=== PATIENT | female | born 2000 | race Caucasian/White ===

== ENCOUNTER 2023-11-19 14:27 | Emergency (ER) | payer MEDICAID | END 2023-11-19 15:42 | disposition left against medical advice (07) | LOC: ED 14:27 | DX: Z53.21 Procedure and treatment not carried out due to patient leaving prior to being seen by health care provider (principal) | CPT/HCPCS: 99281; G0463 ==

== ENCOUNTER 2024-04-08 17:31 | Emergency (ER) | payer MEDICAID, OTHER ==
[2024-04-08 18:32] VITALS: TEMP 97.7; O2SAT 99
--- NOTE | 2024-04-08 19:11 | ERPHSYRPT ---
- History of Present Illness Time Seen by Provider: 04/08/24 18:30 Source: patient Exam Limitations: no limitations Patient Subjective Stated Complaint: C/O left hand pain following and injury at home today. Patient states that she was vacuming her window ledge with the wi ndow raised when it fell on her hand. Triage Nursing Assessment: Patient ambulated back to ER without difficulties. She is alert and oriented. She is gaurding her left hand. Left hand is slightly swollen with no bruising noted. No skin alterations present. Normal sensation present. Physician History: 24-year-old female presents to our ED for evaluation of pain to her left hand. 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 Injury occurred just prior to arrival. Pain described as an ache that is localized. No radiation. Pain worse with movement and palpation pain improved with rest. No other complaints. No other injuries. Patient states he is otherwise healthy. She voices no other complaints at this time. Patient declined pain medication Portions of this note were created with voice recognition technology. There may be grammatical, spelling, punctuation or sound alike errors Occurred: just prior to arrival Method of Injury: direct blow Quality: constant Severity of Pain-Max: moderate Severity of Pain-Current: mild Extremities Pain Location: hand: left Modifying Factors: Improves With: movement Associated Symptoms: none Allergies/Adverse Reactions: influenza virus vaccine qs [id number] (36 mos, up) [From Fluarix Quad] Allergy (Verified 04/08/24 18:20) influenza virus vaccine ts [id number] (36 mos up) [From Fluarix [id number] (PF)] Allergy (Verified 04/08/24 18:20) Home Medications: Cyclobenzaprine HCl 10 mg [Cyclobenzaprine 10 MG] 10 mg PO QID 08/19/23 [History] Dicyclomine HCl 10 mg PO TID 08/19/23 [History] Nabumetone 500 mg PO BID 08/19/23 [History] Sertraline HCl [Zoloft] 100 mg PO DAILY 08/19/23 [History] Sumatriptan Succinate 25 mg [Imitrex 25 MG] 25 mg PO UD PRN 08/19/23 [History] Topiramate 25 mg [Topamax 25 MG] 25 mg PO DAILY 08/19/23 [History] hydrOXYzine HCL [Hydroxyzine HCl] 10 mg PO TID 08/19/23 [History] Hx Tetanus, Diphtheria Vaccination/Date Given: Yes Immunizations Up to Date: Yes Travel Risk - International Travel Have you traveled outside of the country in past 3 weeks: No - Emerging Infectious Disease Are you exhibiting symptoms associated with any current EIDs: No - Review of Systems Constitutional: No Symptoms, No Fever, No Chills Eyes: No Symptoms Ears, Nose, & Throat: No Symptoms Respiratory: No Symptoms, No Cough, No Dyspnea Cardiac: No Symptoms, No Chest Pain, No Edema, No Syncope Abdominal/Gastrointestinal: No Symptoms, No Abdominal Pain, No Nausea, No Vomiting, No Diarrhea Genitourinary Symptoms: No Symptoms, No Dysuria Musculoskeletal: No Symptoms, No Back Pain, No Neck Pain Skin: No Symptoms, No Rash Neurological: No Symptoms, No Dizziness, No Focal Weakness, No Sensory Changes Psychological: No Symptoms Endocrine: No Symptoms Hematologic/Lymphatic: No Symptoms Immunological/Allergic: No Symptoms All Other Systems: Reviewed and Negative - Past Medical History Pertinent Past Medical History: Yes Neurological History: Migraines GI Medical History: Gallbladder Disease, Irritable Bowel Psycho-Social History: Anxiety, Depression - Past Surgical History Past Surgical History: Yes Gastrointestinal: Appendectomy, Cholecystectomy Female Surgical History: Tubal Ligation - Female History Hx Now: No - Social History Smoking Status: Former smoker Exposure to second hand smoke: No Drug Use: none Patient Lives Alone: No - Nursing Vital Signs Nursing Vital Signs: Initial Vital Signs Temperature 97.7 F 04/08/24 18:20 Pulse Rate 81 04/08/24 18:20 Respiratory Rate 19 04/08/24 18:20 Blood Pressure 109/66 04/08/24 18:20 O2 Sat by Pulse Oximetry 99 04/08/24 18:20 Pain Scale Pain Intensity 6 - Physical Exam General Appearance: no apparent distress, alert Eyes, Ears, Nose, Throat Exam: moist mucous membranes Neck Exam: non-tender, supple Cardiovascular/Respiratory Exam: chest non-tender, regular rate/rhythm, no respiratory distress Abdominal Exam: No guarding Back Exam: normal inspection, No vertebral tenderness Shoulder Exam: normal inspection, non-tender, no evidence of injury, normal ROM Elbow/Forearm Exam: normal inspection, non-tender, no evidence of injury, normal ROM Wrist Exam: normal inspection, non-tender, no evidence of injury, normal ROM Hand Exam: bone tenderness (Tenderness to palpation along the dorsum aspect particularly at the left second MCP. Overlying soft tissue intact. Involved extremities neurovascular tact distally compartments are soft cap refill less than 2 seconds.) Neuro/Tendon Exam: normal sensation, normal motor functions Mental Status Exam: alert, oriented x 3, cooperative Skin Exam: normal color, warm, dry SpO2 Interpretation: normal SpO2: 99 O2 Delivery: Room Air - Course Nursing assessment & vital signs reviewed: Yes - Radiology Exams Hand X-ray Interpretation: Interpreted by me (No fracture or dislocation) Ordered Tests: Active Orders 24 hr Category Date Time Status HAND (MINIMUM 3 VIEWS) Stat Exams 04/08/24 18:19 Taken - Progress Progress: improved Progress Note: 24-year-old female presents to our ED for evaluation of pain to her left hand. Patient injured her hand on a window while doing housework. X-ray negative for fracture dislocation. On exam patient is neurovascular tact distally. Compartments are soft cap refill less than 2 seconds. Patient placed in a hand splint for comfort. Patient will see her primary care doctor within 48 hours for evaluation. Patient declined pain medication. She voices no other complaints or concerns at this time. Portions of this note were created with voice recognition technology. There may be grammatical, spelling, punctuation or sound alike errors Complexity problem addressed is moderate acute complicated. No critical care time. Complex of data reviewed and analyzed is moderate. Test ordered test reviewed results analyzed and correlated clinically with history and physical examination. Dr. Heard independently reviewed the x-ray of her involved left hand. Of complication and or risk of morbidity/mortality patient management is low Vital stable. Time spent to discharge patient is approximately 15 minutes. Plan of care established for shared decision making. No social determinants of health present impede follow-up. Portions of this note were created with voice recognition technology. There may be grammatical, spelling, punctuation or sound alike errors 04/08/24 19:16 Counseled pt/family regarding: diagnosis, need for follow-up, rad results - Departure Departure Disposition: Home Clinical Impression: Hand contusion Condition: Stable Critical Care Time: No Referrals: DOCTOR,NO FAMILY [Primary Care Provider] - Follow up/PCP as directed WESTLEY MANLEY MD [ACTIVE STAFF] - Follow up/PCP as directed Additional Instructions: Discharge/Care Plan OLEKSANDR JACKSON was seen on 04/08/24 in the Emergency Room. The patient was counseled regarding Diagnosis,Lab results, Imaging studies, need for follow up and when to return to the Emergency Room. Prescriptions given: Discharge Note I have spoken with the patient and/or caregivers. I have explained the patient's condition, diagnosis and treatment plan based on the information available to me at this time. I have answered the patient's and/or caregiver's questions and addressed any concerns. The patient and/or caregivers have as good understanding of the patient's diagnosis, condition and treatment plan as can be expected at this point. The vital signs have been stable. The patient's condition is stable and appropriate for discharge from the emergency department. The patient will pursue further outpatient evaluation with the primary care physician or other designated or consulting physician as outlined in the discharge instructions. The patient and/or caregivers are agreeable to this plan of care and follow-up instructions have been explained in detail. The patient and/or caregivers have received these instruction. The patient/and or caregivers are aware that any significant change in condition or worsening of symptoms should prompt an immediate return to this or the closest emergency department or call 911. Outpatient Orders: Ortho Referral Time Frame: 1 Day, Facility: [facility], Location: [facility]
[2024-04-08 19:12] VITALS: BP 116/71; PULSE 76; RESP 16
--- NOTE | 2024-04-09 09:01 | XRAY ---
Indication: Pain following injury. Comparison: None 3 view left hand obtained. No bony, articular, or soft tissue abnormalities.
== END 2024-04-08 19:14 | disposition home or self-care (01) ==
LOC: ED 17:31
DX: S60.222A Contusion of left hand, initial encounter (principal); W20.8XXA Other cause of strike by thrown, projected or falling object, initial encounter; Y93.E3 Activity, vacuuming; Z79.899 Other long term (current) drug therapy
CPT/HCPCS: 73130; 99283; A4570

== ENCOUNTER 2024-05-11 18:18 | Emergency (ER) | payer OTHER ==
[2024-05-11 18:34] VITALS: BP 128/68; PULSE 80; RESP 18; TEMP 97.2; O2SAT 98
--- NOTE | 2024-05-11 18:34 | ERPHSYRPT ---
- History of Present Illness Time Seen by Provider: 05/11/24 18:31 Source: patient Exam Limitations: no limitations Physician History: Patient is 24-year-old female came to the emergency room with complaining of right wrist pain which started hurting since yesterday patient denies any fall or injury. Patient denies any other complaint. Occurred: yesterday Method of Injury: unknown Quality: constant Extremities Pain Location: wrist: right Modifying Factors: Improves With: nothing Associated Symptoms: none Body Map: 1 - pain Allergies/Adverse Reactions: influenza virus vaccine qs [id number] (36 mos, up) [From Fluarix Quad] Allergy (Verified 05/11/24 18:26) influenza virus vaccine ts [id number] (36 mos up) [From Fluarix [id number] (PF)] Allergy (Verified 05/11/24 18:26) Home Medications: Cyclobenzaprine HCl 10 mg [Cyclobenzaprine 10 MG] 10 mg PO QID 08/19/23 [History] Dicyclomine HCl 10 mg PO TID 08/19/23 [History] Nabumetone 500 mg PO BID 08/19/23 [History] Sertraline HCl [Zoloft] 100 mg PO DAILY 08/19/23 [History] Sumatriptan Succinate 25 mg [Imitrex 25 MG] 25 mg PO UD PRN 08/19/23 [History] Topiramate 25 mg [Topamax 25 MG] 25 mg PO DAILY 08/19/23 [History] hydrOXYzine HCL [Hydroxyzine HCl] 10 mg PO TID 08/19/23 [History] Hx Tetanus, Diphtheria Vaccination/Date Given: Yes Travel Risk - Emerging Infectious Disease Are you exhibiting symptoms associated with any current EIDs: No - Review of Systems Constitutional: No Fever, No Chills Eyes: No Symptoms Ears, Nose, & Throat: No Symptoms Respiratory: No Cough, No Dyspnea Cardiac: No Chest Pain, No Edema, No Syncope Abdominal/Gastrointestinal: No Abdominal Pain, No Nausea, No Vomiting, No Diarrhea Genitourinary Symptoms: No Dysuria Musculoskeletal: Joint Pain (right wrist), No Back Pain, No Neck Pain Skin: No Rash Neurological: No Dizziness, No Focal Weakness, No Sensory Changes Psychological: No Symptoms Endocrine: No Symptoms Hematologic/Lymphatic: No Symptoms Immunological/Allergic: No Symptoms All Other Systems: Reviewed and Negative - Past Medical History Pertinent Past Medical History: Yes Neurological History: Migraines GI Medical History: Gallbladder Disease, Irritable Bowel Psycho-Social History: Anxiety, Depression Other Medical History: back issues - Past Surgical History Past Surgical History: Yes Gastrointestinal: Appendectomy, Cholecystectomy Female Surgical History: Tubal Ligation - Female History Hx Now: No - Social History Smoking Status: Former smoker Exposure to second hand smoke: No Drug Use: none Patient Lives Alone: No - Social Determinants of Health Will the patient participate in the screening: Yes Do you worry about a steady place to live?: No In the past 12 months,have you had to go without utilities?: No Transportation Issues: No Has anyone in your support network made you feel unsafe?: No Have you or anyone in your house had to go without enough: No - Nursing Vital Signs Nursing Vital Signs: Initial Vital Signs Temperature 97.2 F 05/11/24 18:33 Pulse Rate 80 05/11/24 18:33 Respiratory Rate 18 05/11/24 18:33 Blood Pressure 128/68 05/11/24 18:33 O2 Sat by Pulse Oximetry 98 05/11/24 18:33 Pain Scale Pain Intensity 6 - Physical Exam General Appearance: alert Eyes, Ears, Nose, Throat Exam: moist mucous membranes Neck Exam: non-tender, supple Cardiovascular/Respiratory Exam: chest non-tender, normal breath sounds, regular rate/rhythm, no respiratory distress Abdominal Exam: non-tender, No guarding Back Exam: normal inspection, No vertebral tenderness Shoulder Exam: normal inspection, non-tender, no evidence of injury Elbow/Forearm Exam: normal inspection, non-tender, no evidence of injury, normal ROM Wrist Exam: normal inspection, normal ROM, pain, soft tissue tenderness, No deformity Hand Exam: normal inspection, non-tender, no evidence of injury, normal ROM Neuro/Tendon Exam: normal sensation, normal motor functions Mental Status Exam: alert, oriented x 3, cooperative Skin Exam: normal color, warm, dry - Course Nursing assessment & vital signs reviewed: Yes - Radiology Exams Wrist X-ray Interpretation: Interpreted by me, Reviewed by me, Negative, No Fracture Ordered Tests: Active Orders 24 hr Category Date Time Status WRIST (MIN 3 VIEWS) Stat Exams 05/11/24 18:37 Taken - Progress Progress: unchanged, pain not gone completely Counseled pt/family regarding: diagnosis, need for follow-up, rad results Medical Desision Making - Diagnostic Testing Diagnostic test were ordered, analyzed, and reviewed by me: Yes Radiological Interpretation: Interpreted by me, Reviewed by me - Risk of complications Minimal Risk: Minimal risk of morbidity - Departure Departure Disposition: Home Clinical Impression: Right wrist pain Condition: Stable Critical Care Time: No Referrals: ROBSON GRAMAJO, IQRA [Primary Care Provider] - [facility] M-F [id number] Instructions: Wrist Sprain ED Additional Instructions: Discharge/Care Plan OLEKSANDR JACKSON was seen on 05/11/24 in the Emergency Room. The patient was counseled regarding Diagnosis,Lab results, Imaging studies, need for follow up and when to return to the Emergency Room. Prescriptions given: Discharge Note I have spoken with the patient and/or caregivers. I have explained the patient's condition, diagnosis and treatment plan based on the information available to me at this time. I have answered the patient's and/or caregiver's questions and addressed any concerns. The patient and/or caregivers have as good understanding of the patient's diagnosis, condition and treatment plan as can be expected at this point. The vital signs have been stable. The patient's condition is stable and appropriate for discharge from the emergency department. The patient will pursue further outpatient evaluation with the primary care physician or other designated or consulting physician as outlined in the discharge instructions. The patient and/or caregivers are agreeable to this plan of care and follow-up instructions have been explained in detail. The patient and/or caregivers have received these instruction. The patient/and or caregivers are aware that any significant change in condition or worsening of symptoms should prompt an immediate return to this or the closest emergency department or call 911. OLEKSANDR JACKSON was seen on 05/11/24 n the Emergency Room. At that time you were treated for an emergent condition, during your visit Laboratory, Radiology and/or other procedures may have been ordered. It is very important that you follow-up with your Primary Care Physician ROBSON GRAMAJO within the next 24-48 hours to review your Emergency Room visit and the final results of testing that was ordered. Some test results such as Urine Cultures, Blood Cultures, and other cultures if ordered will not be finalized for 24-48 hours. If you do not have a Primary Care Provider please call the medical records department at [phone] ext [phone] to obtain a copy of your results or you may sign into our patient portal to obtain these results by visiting us @ [email or web address] and completing the following steps: 1. Click on the Patient Portal link 2. Click the Patient Self Enrollment Link to complete the enrollment form and entering your 3. Once the enrollment form is completed you will receive an email with a temporary ID and password at the email address you provided. 4. Next choose a user name and password. Your user name must be at least 4 characters long and your password must be at least 4 characters long. 5. Choose a security question from the list and provide your answer to the question. If you already have signed into the Health Portal you may access your Health Care Information 11/06 by the following steps: 1. Login to our website @ [email or web address] 2. Enter your original user name and password. FAQS The [facility] Health Portal is an online tool that contains your Lab Results, Radiology Reports, Visit History, Discharge Instructions and Health Summary Lab and Radiology Results will not be available for 72 hours on the portal. The Portal is a secure site, passwords are encryted and URLs are re-written so they cannot be copied and pasted. You and authorized family members are the only ones who can access your Portal. Also there is a timeout feature that protects your information if you leave the Portal page open. If you have technical difficulty please use the Contact Us link on the page this will allow you to submit any questions you have regarding the Portal or you may contact the Medical Record Department at [phone] ext [phone].
--- NOTE | 2024-05-11 19:36 | XRAY ---
Indication: Pain following injury. Comparison: None 3 view right wrist obtained. No bony, articular, or soft tissue abnormalities.
== END 2024-05-11 18:54 | disposition home or self-care (01) ==
LOC: ED 18:18
DX: M25.531 Pain in right wrist (principal); Z79.899 Other long term (current) drug therapy
CPT/HCPCS: 73110; 99283; L3908